=== PATIENT | female | born 1945 ===

== ENCOUNTER 2017-03-15 08:25 | Observation (INO) | payer OTHER, SELFPAY ==
[2017-03-15 08:32] VITALS: TEMP 97.8; BMI 23.1
[2017-03-15] MEDS ORDERED: Iohexol 240 (50 ml) PO ONE (09:58)
[2017-03-15] MEDS ORDERED: Iohexol 240 (50 ml) ONE (10:04)
[2017-03-15 10:28] LABS: BASO # 0.1 K/uL (0.0-0.2); EOS # 0.1 K/uL (0.0-0.7); EOS % 2.5 % (0.0-4.0); LYMPH # 2.2 K/uL (1.0-4.3); LYMPH % 44.3 % (20.0-40.0); MEAN CELL VOLUME 93.8 fl (81.0-99.0); MEAN CORPUSCULAR HEMOGLOBIN 31.2 pg (27.0-31.0); MEAN CORPUSCULAR HGB CONC 33.3 g/dL (33.0-37.0); MEAN PLATELET VOLUME 10.3 fl (7.2-11.7); MONO # 0.3 K/uL (0.0-0.8); MONO % 6.9 % (0.0-10.0); NEUT # 2.2 K/uL (1.8-7.0); NEUT % 45.3 % (50.0-75.0); NRBC % 0.1 % (0.0-0.0); RED CELL DISTRIBUTION WIDTH 13.8 % (11.5-14.5); WHITE BLOOD COUNT 4.9 K/uL (4.8-10.8)
[2017-03-15 10:36] LABS: ALB/GLOB RATIO 1.5 (1.0-2.1); ALKALINE PHOSPHATASE 104 U/L (38-126); ALT/SGPT 39 U/L (9-52); AST/SGOT 31 U/L (14-36); BILIRUBIN,TOTAL 0.3 mg/dl (0.2-1.3); BLOOD UREA NITROGEN 15 mg/dl (7-17); CALCIUM 9.9 mg/dL (8.4-10.2); CARBON DIOXIDE 32 mmol/L (22-30); CHLORIDE 101 mmol/L (98-107); GFR AFRICAN-AMERICAN > 60; GLUCOSE,RANDOM 95 mg/dL (65-105); LIPASE 112 U/L (23-300); POTASSIUM 4.1 MMOL/L (3.6-5.0); SODIUM 141 mmol/l (132-148); TOTAL PROTEIN 7.8 G/DL (6.3-8.2)
[2017-03-15 10:38] LABS: RBC URINE 1 /hpf (0-3); URINE BILIRUBIN NEGATIVE (NEGATIVE); URINE BLOOD NEGATIVE (NEGATIVE); URINE COLOR YELLOW (YELLOW); URINE GLUCOSE (UA) NEG (Normal); URINE KETONE NEGATIVE (NEGATIVE); URINE LEUKOCYTE ESTERASE NEG Leu/uL (Negative); URINE PROTEIN NEGATIVE (NEGATIVE); URINE UROBILINOGEN 0.2-1.0 mg/dL (0.2-1.0); WBC URINE < 1 /hpf (0-5)
--- NOTE | 2017-03-15 10:55 | ED PDOC ---
HPI: Abdomen Time Seen by Provider: 03/15/17 08:30 Chief Complaint (Nursing): Abdominal Pain Chief Complaint (Provider): Abdominal Pain History Per: Patient Onset/Duration Of Symptoms: Days Current Symptoms Are (Timing): Still Present Severity: Mild Location Of Pain/Discomfort: LUQ Quality Of Discomfort: "Pain" Associated Symptoms: denies: Fever, Nausea, Vomiting, Diarrhea, Urinary Symptoms Exacerbating Factors: None Alleviating Factors: None Additional Complaint(s): Patient is a 71 year old female who presents to ED for abdominal pain for several weeks. Patient reports pain is LUQ with no associated symptoms. Patient denies fever, nausea, vomiting, diarrhea or back pain. Patient does reports bilateral heel pain as well but denies injury. Past Medical History Reviewed: Historical Data, Nursing Documentation, Vital Signs Vital Signs: Last Vital Signs Temp 97.8 F 03/15/17 08:30 Pulse 76 03/15/17 14:06 Resp 16 03/15/17 14:06 BP 126/70 03/15/17 14:06 Pulse Ox 98 03/15/17 14:06 - Medical History PMH: Hypothyroidism (As per record) Denies: Chronic Kidney Disease - Surgical History Surgical History: No Surg Hx - Family History Family History: States: No Known Family Hx - Living Arrangements Living Arrangements: With Family - Social History Current smoker - smoking cessation education provided: No Alcohol: None Drugs: Denies - Home Medications Home Medications: Ambulatory Orders Medication Instructions Recorded Meclizine [Antivert] 25 mg PO BID PRN #20 tab 05/08/15 Ondansetron HCl [Zofran] 4 mg PO DAILY PRN #8 ml 05/08/15 Dicyclomine [Bentyl] 10 mg PO QID PRN #10 cap 08/30/15 - Allergies Allergies/Adverse Reactions: Allergies Allergy/AdvReac Type Severity Reaction Status Date / Time No Known Allergies Allergy Verified 08/30/15 15:09 Review of Systems ROS Statement: Except As Marked, All Systems Reviewed And Found Negative Constitutional: Negative for: Fever, Chills Cardiovascular: Negative for: Chest Pain Gastrointestinal: Positive for: Abdominal Pain. Negative for: Nausea, Vomiting , Diarrhea Genitourinary Female: Negative for: Dysuria, Hematuria Musculoskeletal: Positive for: Foot Pain. Negative for: Neck Pain Physical Exam - Reviewed Nursing Documentation Reviewed: Yes Vital Signs Reviewed: Yes - Physical Exam Appears: Positive for: Non-toxic, No Acute Distress Skin: Positive for: Normal Color, Warm Eye Exam: Positive for: Normal appearance Neck: Positive for: Normal, Painless ROM Cardiovascular/Chest: Positive for: Regular Rate, Rhythm. Negative for: Murmur Respiratory: Positive for: Normal Breath Sounds. Negative for: Respiratory Distress Gastrointestinal/Abdominal: Positive for: Tenderness (LUQ). Negative for: Distended, Guarding, Rebound Back: Positive for: Normal Inspection Extremity: Positive for: Normal ROM Neurologic/Psych: Positive for: Alert, Oriented - Laboratory Results Result Diagrams: 03/15/17 10:23 03/15/17 10:23 - ECG O2 Sat by Pulse Oximetry: 97 (RA) Pulse Ox Interpretation: Normal Medical Decision Making Medical Decision Making: Time: 949 Initial impression: Abdominal pain Initial plan: -- CT-abdomen -- CMP -- Lipase -- CBC -- Urine culture -- ED obs -- U/A Time: 1335 CT-abdomen results reviewed PROCEDURE: CT abdomen pelvis dated 03/15/2017 HISTORY: Abdominal pain. COMPARISON: Comparison made with CT scan abdomen pelvis dated 08/30/2015. TECHNIQUE: Contiguous axial images of the abdomen and pelvis performed in standard fashion following oral and intravenous injection of approximately 95 cc of Omnipaque 300 contrast material. . . Coronal and Sagittal reformats generated. Radiation dose: Total exam DLP = mGy-cm. This CT exam was performed using one or more of the following dose reduction techniques: Automated exposure control, adjustment of the mA and/or kV according to patient size, and/or use of iterative reconstruction technique. FINDINGS: LOWER THORAX: Mild passive atelectasis both posterior lower lung mcallister. Small hiatal hernia. Slight wall thickening of the distal esophagus could be due to protrusion of gastric mucosa however the possibility of esophagitis not excluded. Heart size is mildly enlarged. . No significant pericardial effusion. LIVER: Liver exhibits normal size measuring approximately 15.8 cm in CC dimension. Mild diffuse fatty hepatic infiltration. . Re- demonstrated is a small approximately 6 mm low-attenuation focus inferior aspect right lobe liver which could represent small cyst or hemangioma. . GALLBLADDER AND BILE DUCTS: Gallbladder is physiologically distended. No evidence of intraluminal gallbladder calculi. PANCREAS: The visualized portions of the pancreas appear unremarkable. Pancreatic duct is visible lobe does not appear significantly dilated. SPLEEN: Spleen exhibits normal size and attenuation pattern. ADRENALS: No adrenal lesions. KIDNEYS AND URETERS: The kidneys exhibit symmetric nephrograms. No evidence of nephrolithiasis or hydronephrosis there is an apparent 18.5 x 17.6 mm exophytic left parapelvic renal cyst. BLADDER: Urinary bladder is incompletely distended which may account for thick-walled appearance. Possibility of a cystitis not excluded. REPRODUCTIVE: Status post hysterectomy. APPENDIX: Normal-appearing appendix. BOWEL: Evaluation of the bowel is somewhat limited due to incomplete opacification. Stomach is incompletely distended which may account thick-walled appearance. Rule out gastritis. Visualized loops of small bowel exhibit normal contour and caliber. No evidence acute mechanical small bowel obstruction. Oral contrast material has extended into the colon the level of the proximal transverse colon. Moderate amount stool is present throughout the colon suggesting mild fecal retention. No radiographic evidence of abnormal mural wall thickening. Is PERITONEUM: Unremarkable. No fluid collection. No free air LYMPH NODES: No significant bulky adenopathy. VASCULATURE: Unremarkable. No aortic aneurysm. BONES:he osseous structures intact OTHER FINDINGS: None. IMPRESSION: Well wall thickening of the urinary bladder likely in part due to underdistention however the possibility of a cystitis not excluded clinical correlation recommended. Small parapelvic partially exophytic exophytic left renal cyst Mild fecal retention. No evidence of acute appendicitis. Mild fatty hepatic infiltration. . Small low-attenuation focus inferior aspect right lobe liver essentially unchanged allowing for differences in slice placement and patient positioning. . Time: 1345 Patient tolerated PO at this time, discussed results from CT and labs. UA neg. instructed that is slightly constiaptted and that could be causing the pain. Discharged with podiatry and primary follow up for bilateral heel pain. Scribe Attestation: Documented by Darshana Morel acting as a scribe for Birgit Hendricks MD MD Scribe Attestation: All medical record entries made by the Scribe were at my direction and personally dictated by me. I have reviewed the chart and agree that the record accurately reflects my personal performance of the history, physical exam, medical decision making, and the department course for this patient. I have also personally directed, reviewed, and agree with the discharge instructions and disposition. Disposition - Clinical Impression Clinical Impression: Abdominal discomfort, Foot pain - Patient ED Disposition Is Patient to be Admitted: No Counseled Patient/Family Regarding: Studies Performed, Diagnosis - Disposition Disposition: Routine/Home Disposition Time: 12:30 Condition: IMPROVED
[2017-03-15] MEDS ORDERED: Iohexol 300 100 ML IJ ONE (12:06)
[2017-03-15] MEDS ORDERED: Sodium Chloride 0.9% 50 ML IV ONE (12:07)
--- NOTE | 2017-03-15 13:33 | CT ---
PROCEDURE: CT abdomen pelvis dated 03/15/2017 HISTORY: Abdominal pain. COMPARISON: Comparison made with CT scan abdomen pelvis dated 08/30/2015. TECHNIQUE: Contiguous axial images of the abdomen and pelvis performed in standard fashion following oral and intravenous injection of approximately 95 cc of Omnipaque 300 contrast material. . . Coronal and Sagittal reformats generated. Radiation dose: Total exam DLP = mGy-cm. This CT exam was performed using one or more of the following dose reduction techniques: Automated exposure control, adjustment of the mA and/or kV according to patient size, and/or use of iterative reconstruction technique. FINDINGS: LOWER THORAX: Mild passive atelectasis both posterior lower lung mcallister. Small hiatal hernia. Slight wall thickening of the distal esophagus could be due to protrusion of gastric mucosa however the possibility of esophagitis not excluded. Heart size is mildly enlarged. . No significant pericardial effusion. LIVER: Liver exhibits normal size measuring approximately 15.8 cm in CC dimension. Mild diffuse fatty hepatic infiltration. . Re- demonstrated is a small approximately 6 mm low-attenuation focus inferior aspect right lobe liver which could represent small cyst or hemangioma. . GALLBLADDER AND BILE DUCTS: Gallbladder is physiologically distended. No evidence of intraluminal gallbladder calculi. PANCREAS: The visualized portions of the pancreas appear unremarkable. Pancreatic duct is visible lobe does not appear significantly dilated. SPLEEN: Spleen exhibits normal size and attenuation pattern. ADRENALS: No adrenal lesions. KIDNEYS AND URETERS: The kidneys exhibit symmetric nephrograms. No evidence of nephrolithiasis or hydronephrosis there is an apparent 18.5 x 17.6 mm exophytic left parapelvic renal cyst. BLADDER: Urinary bladder is incompletely distended which may account for thick-walled appearance. Possibility of a cystitis not excluded. REPRODUCTIVE: Status post hysterectomy. APPENDIX: Normal-appearing appendix. BOWEL: Evaluation of the bowel is somewhat limited due to incomplete opacification. Stomach is incompletely distended which may account thick-walled appearance. Rule out gastritis. Visualized loops of small bowel exhibit normal contour and caliber. No evidence acute mechanical small bowel obstruction. Oral contrast material has extended into the colon the level of the proximal transverse colon. Moderate amount stool is present throughout the colon suggesting mild fecal retention. No radiographic evidence of abnormal mural wall thickening. Is PERITONEUM: Unremarkable. No fluid collection. No free air. LYMPH NODES: No significant bulky adenopathy. VASCULATURE: Unremarkable. No aortic aneurysm. BONES: . The osseous structures intact OTHER FINDINGS: None. IMPRESSION: Well wall thickening of the urinary bladder likely in part due to underdistention however the possibility of a cystitis not excluded clinical correlation recommended. Small parapelvic partially exophytic exophytic left renal cyst Mild fecal retention. No evidence of acute appendicitis. Mild fatty hepatic infiltration. . Small low-attenuation focus inferior aspect right lobe liver essentially unchanged allowing for differences in slice placement and patient positioning. .
[2017-03-15 14:07] VITALS: BP 126/70; PULSE 76; RESP 16
[2017-03-15 14:43] VITALS: O2SAT 97
== END 2017-03-15 13:46 | disposition home or self-care (01) ==
LOC: H.ER 08:25 → H.EROBSV 09:59
PROVIDERS: ADMIT Emergency Medicine; ATTEND Emergency Medicine
DX: R10.12 Left upper quadrant pain (principal); E03.9 Hypothyroidism, unspecified; M25.572 Pain in left ankle and joints of left foot; M25.571 Pain in right ankle and joints of right foot
CPT/HCPCS: 36415; 74177; 80053; 81003; 83690; 85025; 87086; 99282; G0378; Q9966; Q9967

== ENCOUNTER 2018-05-09 10:20 | Day surgery (SDC) | payer SELFPAY ==
[2018-05-09] MEDS ORDERED: Lactated Ringer's 500 ML IV ONE (11:58)
[2018-05-09] MEDS ORDERED: Propofol 10 mg/ml Inj (20 ML) ONE (13:06)
[2018-05-09] MEDS ORDERED: ePHEDrine 50 mg/ml Inj ONE (13:56)
[2018-05-09 14:14] VITALS: RESP 16; TEMP 97; O2SAT 100
[2018-05-09 14:23] VITALS: BP 101/54; PULSE 61
== END 2018-05-09 14:24 | disposition home or self-care (01) ==
LOC: H.ENDO 10:20
PROVIDERS: ATTEND Internal Medicine Gastroenterology
DX: Z12.11 Encounter for screening for malignant neoplasm of colon (principal); E78.5 Hyperlipidemia, unspecified; E03.9 Hypothyroidism, unspecified; K64.8 Other hemorrhoids
CPT/HCPCS: 45378; J2001; J2704; J7120

== ENCOUNTER 2018-10-06 11:12 | Emergency (ER) | payer SELFPAY ==
[2018-10-06 11:25] VITALS: RESP 18
[2018-10-06] MEDS ORDERED: PROPARACAINE/FLUORESCEIN SOD 100 DROP/5 ML BOTTLE OD STA (12:31)
--- NOTE | 2018-10-06 12:50 | ED PDOC ---
HPI: Eye Injury/Pain Time Seen by Provider: 10/06/18 12:17 Chief Complaint (Nursing): Eye Problem Chief Complaint (Provider): Eye Problem History Per: Patient History/Exam Limitations: no limitations Onset/Duration Of Symptoms: Days (x2 for eye, x3 for cough) Current Symptoms Are (Timing): Still Present Associated Symptoms: Itching. denies: Decreased Vision, Discharge From Eye Additional Complaint(s): 73 year old female with a history of high cholesterol presents to the ED for evaluation of right eye irritation going on for 2 days. Patient reports she was getting on the bus when she felt the wind blow something into her eye. Since then she has had eye discomfort with associated redness, itching and tearing. Patient denies wearing glasses, wearing contacts, visual changes, recent fever, crusting of eyelashes, headache or dizziness. Patient is also complaining of cough for three days. She has taken no medications for symptoms. Patient denies shortness of breath, chest pain, arm or jaw pain, orthopnea, hemoptysis or any other medical complaints. PMD: Dr. Quinn Past Medical History Reviewed: Historical Data, Nursing Documentation, Vital Signs Vital Signs: Last Vital Signs Temp 97.6 F 10/06/18 11:24 Pulse 61 10/06/18 11:24 Resp 18 10/06/18 11:24 BP 116/67 10/06/18 11:24 Pulse Ox 98 10/06/18 11:24 - Medical History PMH: Hyperlipidemia, Hypothyroidism Denies: Chronic Kidney Disease - Surgical History Other surgeries: Hysterectomy - Family History Family History: States: Unknown Family Hx - Social History Current smoker - smoking cessation education provided: No - Home Medications Home Medications: Ambulatory Orders Medication Instructions Recorded Benzonatate [Tessalon Perles] 100 mg PO Q8 PRN #21 sgl 10/06/18 RX: Ciprofloxacin 0.3% [Ciloxan 1 drop OD Q4 #1 bottle 10/06/18 0.3% Ophth SOLN] - Allergies Allergies/Adverse Reactions: Allergies Allergy/AdvReac Type Severity Reaction Status Date / Time No Known Allergies Allergy Verified 10/06/18 11:28 Review of Systems ROS Statement: Except As Marked, All Systems Reviewed And Found Negative Constitutional: Negative for: Fever Eyes: Positive for: Redness, Other (right eye irritation, tearing). Negative for: Vision Change Cardiovascular: Negative for: Chest Pain Respiratory: Positive for: Cough. Negative for: Shortness of Breath, Hemoptysis, Other (orthopnea) Musculoskeletal: Negative for: Arm Pain, Other (jaw pain ) Neurological: Negative for: Headache, Dizziness Physical Exam - Reviewed Nursing Documentation Reviewed: Yes Vital Signs Reviewed: Yes - Physical Exam Comments: GENERAL APPEARANCE: Patient is awake, alert, oriented x 3, and in no acute distress. HEENT: (-) facial swelling and erythema, (-) facial blisters. VISUAL ACUITIES: Left eye: 20/30; Right eye: 20/40. Both: 20/30. LIDS & LASHES: No crusting. PUPILS: Pupils equal and reactive. EOM's: Intact and painless. RIGHT EYE: diffuse conjunctival injection of right eye, (-) mucous discharge, (- ) chemosis, (-) hyphema, (-) periorbital edema, (-) periorbital erythema, (-) periorbital warmth, (-) visualized foreign body. CHEST AND RESPIRATORY: (-) retractions, (-) rales, (-) rhonchi, (-) wheezes; respirations are even and nonlabored. Speaking in full sentences. HEART AND CARDIOVASCULAR: (-) irregularity NECK: Supple, FROM - ECG O2 Sat by Pulse Oximetry: 98 (RA) Pulse Ox Interpretation: Normal Medical Decision Making Medical Decision Making: Time: 1230 Clinical Impression: Right eye irritation; cough Initial Plan: --Flucaine eye drops 1445 In light of fluoroscein uptake, Cipro ophthalmic drops ordered. 1530 On re-evaluation, patient reports improvement of symptoms. On exam, patient remains AAOx3, in no acute distress. Vitals stable. Lab/Diagnostic results d/w the patient in great detail. Diagnosis of cough; eye irritation, conjunctival abrasion d/w the patient. Based on history, exam and diagnostic results, plan will be for outpatient follow up with PMD/ophtho. Patient instructed to follow-up with pmd / referral provided / the clinic in 1- 2 days without fail. Advised to take medication as prescribed. Return to the emergency room at any time for any new or worsening symptoms. Patient states she fully agrees with and understands discharge instructions. States that she agrees with the plan and disposition. Verbalized and repeated discharge instructions and plan. I have given the patient opportunity to ask any additional questions. Scribe Attestation: Documented by Milena Langford, acting as a scribe for Ny Powell PA-C. Attestation: All medical record entries made by the Scribe were at my direction and personally dictated by me. I have reviewed the chart and agree that the record accurately reflects my personal performance of the history, physical exam, medical decision making, and the department course for this patient. I have also personally directed, reviewed, and agree with the discharge instructions and disposition. Disposition - Clinical Impression Clinical Impression: Corneal abrasion, Irritation of right eye, Cough - Patient ED Disposition Is Patient to be Admitted: No Counseled Patient/Family Regarding: Studies Performed, Diagnosis, Need For Followup, Rx Given - Disposition Referrals: Akira Bal MD [Staff Provider] - Niyah Quinn MD [Resident] - Disposition: Routine/Home Disposition Time: 15:35 Condition: STABLE Additional Instructions: La atencin mdica de emergencia que recibi hoy se dirigi a aixa sntomas agudos. Si le recetaron algn medicamento, llnelo y tmelo segn las indicaciones. Los sntomas pueden tardar varios mace en resolverse. Regrese al Departamento de Emergencias si aixa sntomas empeoran, no mejoran o si tiene otros problemas. Comunquese con deluca mdico dentro de 2 mace para mahi nueva evaluacin y tamanna un seguimiento o llame a jass de los mdicos / clnicas a los que wilson sido referido y que figuran en el formulario de Informacin de visita al paciente que se incluye en deluca paquete de jeffy. Lleve todos los documentos que le entregaron al momento del jeffy junto con todos los medicamentos que est tomando para deluca visita de seguimiento. Nuestro tratamiento no puede reemplazar la atencin mdica continua por parte de un proveedor de atencin primaria (PCP) fuera del departamento de emergencias. Prescriptions: Benzonatate [Tessalon Perles] 100 mg PO Q8 PRN #21 sgl PRN Reason: Cough RX: Ciprofloxacin 0.3% [Ciloxan 0.3% Ophth SOLN] 1 drop OD Q4 #1 bottle Instructions: Corneal Abrasion, Cough, Adult (DC) Forms: [employer] (Maltese) Print Language: ITALIAN - POA Present On Arrival: None
[2018-10-06] MEDS ORDERED: Fluorescein 1 mg Ophthalmic Strip ONE (14:04)
[2018-10-06] MEDS ORDERED: Tetracaine 0.5% Ophth 2 ML BOTTLE ONE (14:04)
[2018-10-06] MEDS ORDERED: Ciprofloxacin 0.3% OPTH SOLN OD ONE (14:45)
[2018-10-06 16:08] VITALS: BP 114/78; PULSE 76; TEMP 98.8
[2018-10-07 15:18] VITALS: O2SAT 98
== END 2018-10-06 16:08 | disposition home or self-care (01) ==
LOC: H.ER 11:12
DX: S05.01XA Injury of conjunctiva and corneal abrasion without foreign body, right eye, initial encounter (principal); Y92.89 Other specified places as the place of occurrence of the external cause; E03.9 Hypothyroidism, unspecified; E78.5 Hyperlipidemia, unspecified